=== PATIENT | male | born 1980 | race Caucasian/White ===

== ENCOUNTER 2019-07-15 05:51 | Emergency (ER) | payer OTHER ==
[~2019-07-15] VITALS: Ht 185.4 cm; Wt 136.1 kg
[~2019-07-15 05:51] MED LIST: ADDERALL 5 MG TA5 M1 PO; ADDERALL XR 2525 MG PO; ALLEGRA-D 12 H1 EAC1 PO; ANDROGEL; INDERAL40 MG PO; MECLIZINE 25 MG25 M1 PO; MIRAPEX0.125 MG PO; NORCO 5-325 TA1 EACH PO; PREDNISONE 5 MG5 MG PO; PRINZIDE 20-121 EACH PO; RISPERDAL0.5 MG; ZOFRAN 4 MG ORAL4 M1 DIS
[2019-07-15] MEDS ORDERED: LEVO-T100 MCG PO (06:11)
[2019-07-15] MEDS ORDERED: KEFLEX500 M1 PO (06:12)
[2019-07-15] MEDS ORDERED: BENTYL 10 MG CA10 MG PO (06:12)
[2019-07-15] MEDS ORDERED: RAYOS5 MG PO (06:12)
[2019-07-15] MEDS ORDERED: PRAZOSIN 1 MG CA1 M1 PO (06:12)
[2019-07-15 06:20] LABS: ABSOLUTE BASOPHILS 0.1 thou/uL (0.0-0.2); ABSOLUTE EOSINOPHILS 0.1 thou/uL (0.0-0.7); ABSOLUTE LYMPHOCYTES 1.2 thou/uL (0.8-5.3); ABSOLUTE MONOCYTES 0.6 thou/uL (0.0-1.2); ABSOLUTE NEUTROPHILS 6.8 thou/uL (1.6-8.1); BASOPHILS 0.8 %; EOSINOPHILS 1.2 %; HEMATOCRIT 40.4 % (42.0-52.0); HEMOGLOBIN 14.1 gm/dL (14.0-18.0); LYMPHOCYTES 13.5 %; MCH 27.9 pg (26.0-34.0); MCHC 34.9 g/dL (28.0-37.0); MONOCYTES 7.3 %; MPV 7.4 fl. (7.2-11.1); NUCLEATED RBCS 0 /100WBC; PLATELET COUNT* 180 thou/uL (150-400); POLYS 77.2 %; RBC 5.06 mil/uL (4.50-6.00); RDW-CV 13.6 % (10.5-14.5); WBC 8.8 thou/uL (4.0-11.0)
[2019-07-15 06:29] LABS: CALCIUM 8.7 mg/dL (8.5-10.1); POTASSIUM 3.6 mmol/L (3.5-5.1)
[2019-07-15] MEDS ORDERED: HYDROCODON-ACE1 EAC8 PO (06:59)
[2019-07-15] MEDS ORDERED: CLEOCIN HCL300 MG PO (06:59)
[2019-07-15 07:07] VITALS: BP 128/80
== END 2019-07-15 07:08 | disposition still patient (30) ==
LOC: M.ERS 05:51
PROVIDERS: Emergency Medicine
DX: K02.9 Dental caries, unspecified (principal); R22.0 Localized swelling, mass and lump, head; G43.909 Migraine, unspecified, not intractable, without status migrainosus; Z90.49 Acquired absence of other specified parts of digestive tract